=== PATIENT | female | born 1990 | race Caucasian/White ===

== ENCOUNTER 2016-11-07 07:21 | Emergency (ER) | payer OTHER ==
[2016-11-07 07:36] VITALS: BP 123/78
--- NOTE | 2016-11-07 07:56 | UC ---
Throat Pain/Nasal Jake HPI - HPI Summary HPI Summary: 26 yo female with sore throat x 1 day no cough no n/v/d - History of Current Complaint Chief Complaint: UCRespiratory Stated Complaint: SORE THROAT,FEVER Time Seen by Provider: 11/07/16 07:42 Hx Obtained From: Patient Hx Last Menstrual Period: 10/18/16 Onset/Duration: Gradual Onset, Lasting Days Severity: Mild Pain Intensity: 4 Pain Scale Used: 0-10 Numeric Cough: None - Epiglottits Risk Factors Epiglottis Risk Factors: Negative - Allergies/Home Medications Allergies/Adverse Reactions: Allergies Allergy/AdvReac Type Severity Reaction Status Date / Time Amoxicillin Allergy Hives Verified 11/07/16 07:36 Home Medications: Home Medications Norgestimate-Eth Estradiol(NF) [Ortho Tri-Cyclen (NF)] 1 tab PO DAILY 11/07/16 [ History Confirmed 11/07/16] PMH/Surg Hx/FS Hx/Imm Hx Previously Healthy: Yes - Surgical History Surgical History: None - Family History Known Family History: Positive: Cardiac Disease, Hypertension, Diabetes, Respiratory Disease - Social History Alcohol Use: Occasionally Substance Use Type: None Smoking Status (MU): Never Smoked Tobacco Household Exposure Type: Cigarettes - Immunization History Most Recent Influenza Vaccination: Not the Season Review of Systems Constitutional: Negative Skin: Negative Eyes: Negative ENT: Sore Throat Respiratory: Negative Cardiovascular: Negative Gastrointestinal: Negative Genitourinary: Negative Motor: Negative Neurovascular: Negative Musculoskeletal: Negative Neurological: Negative Psychological: Negative All Other Systems Reviewed And Are Negative: Yes Physical Exam Triage Information Reviewed: Yes Appearance: Well-Appearing, No Pain Distress, Well-Nourished Vital Signs: Initial Vital Signs Temp 97.8 F 11/07/16 07:32 Pulse 91 11/07/16 07:32 Resp 14 11/07/16 07:32 BP 123/78 11/07/16 07:32 Pulse Ox 99 11/07/16 07:32 Vital Signs Reviewed: Yes Eyes: Positive: Conjunctiva Clear ENT: Positive: Hearing grossly normal, Pharyngeal erythema, Tonsillar swelling Neck: Positive: Supple, Enlarged Nodes @ - ant cervical Respiratory: Positive: Lungs clear, Normal breath sounds, No respiratory distress Cardiovascular: Positive: RRR, No Murmur Musculoskeletal: Positive: ROM Intact, No Edema Neurological: Positive: Alert Psychological Exam: Normal Skin Exam: Normal Throat Pain/Nasal Course/Dx - Course Course Of Treatment: rs (-) - Differential Dx/Diagnosis Provider Diagnoses: acute pharyngitis with household exposure to strep Discharge - Discharge Plan Condition: Stable Disposition: HOME Prescriptions: Cephalexin CAP* [Keflex 500 CAP*] 500 mg PO BID #20 cap Fluconazole 150 MG (NF) [Diflucan 150 mg (NF)] 150 mg PO ONCE #2 tab Patient Education Materials: Pharyngitis (ED) Forms: *Work Release Referrals: China Hill MD [Primary Care Provider] - 4 Days (if not better)
== END 2016-11-07 08:10 | disposition home or self-care (01) ==
LOC: UCCORT 07:21
DX: J02.9 Acute pharyngitis, unspecified (principal); Z20.89 Contact with and (suspected) exposure to other communicable diseases
CPT/HCPCS: 87651; 99212; G0463

== ENCOUNTER 2017-01-13 21:14 | Emergency (ER) | payer OTHER ==
[2017-01-13 21:23] VITALS: BP 142/80
[2017-01-13] MEDS ORDERED: Ibuprofen TAB* 600 MG PO ONE (21:30)
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
--- NOTE | 2017-01-13 21:57 | RAD ---
INDICATION: Right thumb injury. TECHNIQUE: 3 views of the right thumb were obtained. FINDINGS: There is diffuse soft tissue swelling. No fracture is seen. Joint spaces appear maintained. IMPRESSION: SOFT TISSUE SWELLING, NO FRACTURE IS SEEN.
== END 2017-01-13 21:58 | disposition home or self-care (01) ==
LOC: UCCORT 21:14
DX: S63.601A Unspecified sprain of right thumb, initial encounter (principal); M79.1 Myalgia; V43.52XA Car driver injured in collision with other type car in traffic accident, initial encounter; Y93.89 Activity, other specified; Y92.410 Unspecified street and highway as the place of occurrence of the external cause; R51 Headache; Z88.1 Allergy status to other antibiotic agents; Z87.891 Personal history of nicotine dependence
CPT/HCPCS: 99212; A9270-GY; G0463

== ENCOUNTER 2017-01-17 17:20 | Emergency (ER) | payer SELFPAY ==
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
[2017-01-17 19:47] VITALS: BP 126/82
== END 2017-01-17 19:52 | disposition home or self-care (01) ==
LOC: UCCORT 17:20
DX: S16.1XXS Strain of muscle, fascia and tendon at neck level, sequela (principal); M25.512 Pain in left shoulder; M25.511 Pain in right shoulder; R11.0 Nausea; V49.9XXS Car occupant (driver) (passenger) injured in unspecified traffic accident, sequela; Z88.1 Allergy status to other antibiotic agents; Z87.891 Personal history of nicotine dependence
CPT/HCPCS: 72050; 99212; G0463

== ENCOUNTER 2017-01-30 09:54 | Emergency (ER) | payer OTHER ==
[2017-01-30 10:08] VITALS: BP 105/67
[2017-01-30] MEDS ORDERED: Tetan/Diph/Pertus SYR(Tdap)* 0.5 ML SYR(BOOSTRIX) use SYR IM ONE (10:26)
--- NOTE | 2017-01-30 10:37 | UC ---
Laceration HPI - HPI Summary HPI Summary: Pt c/o laceration to left index finger. Pt was trimming her hedges and accidentally cut left index finger. Pt is not UTD with tetanus. - History Of Current Complaint Chief Complaint: UCLaceration Stated Complaint: LEFT INDEX FINGER LACERATION Time Seen by Provider: 01/30/17 10:07 Hx Obtained From: Patient Hx Last Menstrual Period: 01/09/17 Laceration Location: Finger - left index Mechanism Of Injury: Sharp Trauma Onset/Duration: Sudden Onset, Still Present Severity: Moderate Aggravating Factors: Movement Related History: Dominant Hand Right - Allergies/Home Medications Allergies/Adverse Reactions: Allergies Allergy/AdvReac Type Severity Reaction Status Date / Time Amoxicillin Allergy Hives Verified 01/30/17 10:08 PMH/Surg Hx/FS Hx/Imm Hx Previously Healthy: Yes - Surgical History Surgical History: None - Family History Known Family History: Positive: Cardiac Disease, Hypertension, Diabetes, Respiratory Disease - Social History Occupation: Employed Full-time Lives: With Family Alcohol Use: Occasionally Substance Use Type: None Smoking Status (MU): Former Smoker Have You Smoked in the Last Year: No When Did the Patient Quit Smoking/Using Tobacco: 2014 Household Exposure Type: Cigarettes - Immunization History Most Recent Influenza Vaccination: no Most Recent Tetanus Shot: unknown Review of Systems Constitutional: Negative Skin: Other - laceration left index finger Eyes: Negative ENT: Negative Respiratory: Negative Cardiovascular: Negative Gastrointestinal: Negative Genitourinary: Negative Motor: Negative Neurovascular: Negative Musculoskeletal: Negative Neurological: Negative Psychological: Negative All Other Systems Reviewed And Are Negative: Yes Physical Exam Triage Information Reviewed: Yes Appearance: Pain Distress, Other: - pt c/o of feeling dizzy and "going to faint " while looking at laceration. Pt tearful during exam Vital Signs: Initial Vital Signs Temp 98.1 F 01/30/17 10:04 Pulse 78 01/30/17 10:04 Resp 16 01/30/17 10:04 BP 105/67 01/30/17 10:04 Pulse Ox 100 01/30/17 10:04 Eye Exam: Normal ENT Exam: Normal Dental Exam: Normal Neck exam: Normal Respiratory Exam: Other Respiratory: Positive: No respiratory distress Cardiovascular Exam: Normal Musculoskeletal Exam: Normal Musculoskeletal: Positive: Strength Intact, ROM Intact Neurological Exam: Normal Psychological Exam: Normal Skin Exam: Other - laceration left index finger distal finger, anterior side Laceration Repair - Laceration Repair 1 Description: Linear Laceration Size After Repair: Length (cm) - 2, Width (mm) - 4, Depth (mm) - 3 Modified For Repair: No Irrigation With Pressure Irrigation Device: Yes Closure Material: Skin Adhesive, SteriStrips Closure Method: Single Layer Suture Of: Skin Laceration Course/Dx - Course/Dx Course Of Treatment: I discussed wiht the pt the need to keep the wound clean and dry and on finger splint for support of healing of wound - Differential Dx - Laceration/Wound Differental Diagnoses: Laceration, Other - tetanus vaccine Provider Diagnoses: laceration left index finger, skin adhesive and steri strips. tetanus vaccination Discharge - Discharge Plan Condition: Stable Disposition: HOME Prescriptions: Cephalexin CAP* [Keflex 500 CAP*] 500 mg PO Q12H #10 cap Fluconazole 100 MG TAB* [Diflucan 100 MG TAB*] 100 mg PO DAILY #2 tab Patient Education Materials: Laceration (ED), Skin Adhesive Care (ED) Referrals: China Hill MD [Primary Care Provider] - If Needed Additional Instructions: Please follow up with your PCP or return to clinic as needed. Do not apply antibiotic ointment to the wound, do not peel the adhesive or tape off the wound. Keep the wound clean and dry. Change te bandage daily or more frequently if it becomes soiled. Monitor for signs and symptoms for infection including but limited to increased redness, tenderness, fever, chills, purulent discharge, and/or swelling.
== END 2017-01-30 11:00 | disposition home or self-care (01) ==
LOC: UCCORT 09:54
DX: S61.211A Laceration without foreign body of left index finger without damage to nail, initial encounter (principal); W26.8XXA Contact with other sharp object(s), not elsewhere classified, initial encounter; Z88.3 Allergy status to other anti-infective agents; Z87.891 Personal history of nicotine dependence; Z23 Encounter for immunization
CPT/HCPCS: 12001; 90471; 90715; 99212; G0463

== ENCOUNTER 2017-04-30 14:05 | Emergency (ER) | payer OTHER | END 2017-04-30 15:36 | disposition left against medical advice (07) | LOC: UCCORT 14:05 | DX: R51 Headache (principal); H92.09 Otalgia, unspecified ear; Z53.21 Procedure and treatment not carried out due to patient leaving prior to being seen by health care provider ==

== ENCOUNTER 2017-11-20 15:15 | Emergency (ER) | payer MEDICAID, OTHER ==
[2017-11-20 15:46] VITALS: BP 131/80
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
--- NOTE | 2017-11-20 16:17 | RAD ---
Indication: RIGHT foot pain and swelling since Monday without known injury. Comparison: No relevant prior exams available on the [facility] [place] PACS for comparison. Technique: AP, lateral, and oblique views RIGHT foot. Report: Normal articular alignment. Negative for fracture or findings of stress reaction. Normal variant prominent posterior medial aspect of the navicula consistent with normal variant cornuate morphology. Mild osteoarthritis at the tarsal metatarsal articulations. Mild nonfocal soft tissue swelling. IMPRESSION: Negative for fracture. Mild osteoarthritis at the mid foot.
== END 2017-11-20 16:43 | disposition home or self-care (01) ==
LOC: UCCORT 15:15
DX: M79.671 Pain in right foot (principal); S80.861A Insect bite (nonvenomous), right lower leg, initial encounter; S80.862A Insect bite (nonvenomous), left lower leg, initial encounter; W57.XXXA Bitten or stung by nonvenomous insect and other nonvenomous arthropods, initial encounter; Z88.0 Allergy status to penicillin; Y92.833 Campsite as the place of occurrence of the external cause; Z87.891 Personal history of nicotine dependence
CPT/HCPCS: 99213; G0463

== ENCOUNTER 2018-02-07 07:31 | Emergency (ER) | payer MEDICAID, OTHER ==
[2018-02-07 08:05] VITALS: BP 139/69
--- NOTE | 2018-02-07 10:52 | UC ---
Back Pain HPI - History of Current Complaint Chief Complaint: UCBackPain Stated Complaint: BACK PAIN Time Seen by Provider: 02/07/18 09:14 Hx Obtained From: Patient Hx Last Menstrual Period: 12/31/17 ?: No Onset/Duration: Gradual Onset, Lasting Weeks Timing: Constant Severity Initially: Moderate Severity Currently: Moderate Pain Intensity: 7 Back Pain: Radiates To - both legs Character: Throbbing Aggravating Factor(s): Movement, Bending Alleviating Factor(s): Rest, OTC Meds Associated Signs And Symptoms: Positive: Abdominal Pain - Risk Factors AAA Risk Factors: Negative TAD Risk Factors: Negative Cauda Equina Risk Factors: Negative - Allergies/Home Medications Allergies/Adverse Reactions: Allergies Allergy/AdvReac Type Severity Reaction Status Date / Time amoxicillin Allergy Intermediate Hives Verified 02/07/18 08:06 PMH/Surg Hx/FS Hx/Imm Hx Previously Healthy: Yes - Surgical History Surgical History: None - Family History Known Family History: Positive: Cardiac Disease, Hypertension, Diabetes, Respiratory Disease - Social History Alcohol Use: Occasionally Substance Use Type: None Smoking Status (MU): Former Smoker Have You Smoked in the Last Year: No When Did the Patient Quit Smoking/Using Tobacco: 2014 Household Exposure Type: Cigarettes - Immunization History Most Recent Influenza Vaccination: no Most Recent Tetanus Shot: unknown Vaccination Up to Date: Yes Review of Systems Constitutional: Fatigue Skin: Negative Eyes: Negative ENT: Negative Respiratory: Negative Cardiovascular: Negative Gastrointestinal: Abdominal Pain - lower abdominal cramping Motor: Negative Neurovascular: Negative Musculoskeletal: Arthralgia Neurological: Negative Psychological: Negative Is Patient Immunocompromised?: No All Other Systems Reviewed And Are Negative: Yes Physical Exam Triage Information Reviewed: Yes Appearance: Well-Appearing Vital Signs: Initial Vital Signs Temp 36.3 C 02/07/18 08:00 Pulse 89 02/07/18 08:00 Resp 18 02/07/18 08:00 BP 139/69 02/07/18 08:00 Pulse Ox 99 02/07/18 08:00 Vital Signs Reviewed: Yes Eye Exam: Normal Eyes: Positive: Conjunctiva Clear ENT Exam: Normal ENT: Positive: Normal ENT inspection Dental Exam: Normal Neck exam: Normal Neck: Positive: Supple Respiratory: Positive: Chest non-tender Cardiovascular Exam: Normal Cardiovascular: Positive: RRR Abdominal Exam: Normal Abdomen Description: Positive: Nontender Bowel Sounds: Positive: Present Musculoskeletal: Positive: Strength Intact Neurological: Positive: Alert, Muscle Tone Normal, Other: - dtrs absent knees, ankles, normal heel and toe walking , gait normal sensation intact lower extremities Psychological Exam: Normal Psychological: Positive: Normal Response To Family Skin Exam: Normal Back Pain Course/Dx - Differential Dx/Diagnosis Provider Diagnoses: low back pain Discharge - Sign-Out/Discharge Documenting (check all that apply): Patient Departure All imaging exams completed and their final reports reviewed: Yes - Discharge Plan Condition: Good Disposition: HOME Prescriptions: Meloxicam [Mobic] 15 mg PO DAILY PRN #14 tablet PRN Reason: Pain - Back Patient Education Materials: Low Back Strain (ED), Acute Low Back Pain (ED), Lower Back Exercises (ED) Referrals: China Hill MD [Primary Care Provider] - - Billing Disposition and Condition Condition: GOOD Disposition: Home
[2018-02-07 14:24] LABS: ABS Basophils 0.1 10^3/ul (0-0.2); ABS Eosinophils 0.2 10^3/ul (0-0.6); ABS Lymphocytes 2.8 10^3/ul (1.0-4.8); ABS Monocytes 0.7 10^3/ul (0-0.8); ABS Neutrophils 6.7 10^3/ul (1.5-7.7); ABS Nucleated RBC 0 10^3/ul; Eosinophil % 1.9 % (0-6); Hematocrit 42 % (35-47); Hemoglobin 14.5 g/dl (12.0-16.0); Lymphocyte % 26.5 % (25-47); Mean Corpuscular HGB Conc 35 g/dl (31-36); Mean Corpuscular Hemoglobin 32 pg (27-31); Mean Corpuscular Volume 91 fL (80-97); Mean Platelet Volume 9.4 um3 (7.4-10.4); Nucleated Red Blood Cells % 0.1; Platelet Count 311 10^3/ul (150-450); Red Cell Distribution Width 12 % (10.5-15); White Blood Count 10.5 10^3/ul (3.5-10.8)
== END 2018-02-07 11:22 | disposition home or self-care (01) ==
LOC: UCCORT 07:31
DX: M54.5 Low back pain (principal); Z88.0 Allergy status to penicillin; Z87.891 Personal history of nicotine dependence
CPT/HCPCS: 36415; 81003; 84443; 84702; 85025; 85652; 86038; 99212; G0463